=== PATIENT | male | born 2005 | race Caucasian/White ===

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

== ENCOUNTER 2024-01-10 13:07 | Emergency (ER) | payer MEDICAID ==
[~2024-01-10] VITALS: Ht 193 cm; Wt 88.9 kg
[~2024-01-10 13:07] MED LIST changes: +BENZ1LOZ73 PO; +IBUP-1969 PO; +LORA10TA7 PO
[2024-01-10 13:33] VITALS: BP_SYST 135; PULSE 77; RESP 19; TEMP 97.9; O2SAT 99
[2024-01-10] MEDS: IBUPROFEN 600 MG TABLET PO ONE (14:38)
[2024-01-10] MEDS ORDERED: GUAI5SYR PO (16:31)
[2024-01-10] MEDS ORDERED: NIRM1TAB9 PO (16:31)
[2024-01-10] MEDS ORDERED: IBUP-1969 PO (16:31)
[2024-01-10 16:40] VITALS: BP_SYST 135; PULSE 77; RESP 19; TEMP 97.9; O2SAT 99
== END 2024-01-10 16:41 | disposition home or self-care (01) ==
LOC: SED 13:07
DX: U07.1 COVID-19 (principal); Z88.1 Allergy status to other antibiotic agents; Z79.899 Other long term (current) drug therapy; Z79.2 Long term (current) use of antibiotics
CPT/HCPCS: 36415; 99283